=== PATIENT | female | born 1995 | race Caucasian/White ===

== ENCOUNTER 2021-03-02 16:17 | Inpatient (IN) ==
[2021-03-02] MEDS ORDERED: OXYTOCIN/0.9 % SODIUM CHLORIDE 30 UNITS/500 ML BAG IV ONE (17:59)
[2021-03-02] MEDS ORDERED: LIDOCAINE HCL 50 ML VIAL PERI PRN (17:59)
[2021-03-02] MEDS ORDERED: MISOPROSTOL 100 MCG TABLET VG PRN (17:59)
[2021-03-02] MEDS ORDERED: ONDANSETRON 4 MG TAB.RAPDIS PO PRN (17:59)
[2021-03-02] MEDS ORDERED: RINGER'S SOLUTION,LACTATED 1,000 ML IV ONE (17:59)
[2021-03-02] MEDS ORDERED: BUTORPHANOL TARTRATE 2 MG/ML VIAL IV PRN ×2 (17:59)
[2021-03-02 18:15] LABS: Hematocrit 35.3 % (37.0-47.0); Hemoglobin 11.4 gm/dL (12.5-16.0); Mean Cell Volume 83.1 fl (78-100); Mean Corpuscular Hemoglobin 26.8 pg (27-31); Mean Corpuscular Hgb Conc 32.3 g/dl (32-36); Mean Platelet Volume 11.9 fl (8-12.5); Neutrophil # 7.2 K/mm3 (1.3-6.0); Neutrophil % 73.5 % (42-75.0); Platelet Count 219 K/mm3 (150-450); Red Blood Count 4.25 M/mm3 (4.2-5.4); Red Cell Distribution Width 13.6 % (11.5-14.0); White Blood Count 9.7 K/mm3 (4.0-10.5)
[2021-03-02 18:30] LABS: Albumin * 2.7 gm/dl (3.4-5.0); Anion Gap 18.5 mmol/L (6.8-13.8); BUN/Creatinine Ratio 13.9 (9.0-21.6); Bilirubin, Total 0.1 mg/dL (0.0-1.1); Ca. Corrected For Albumin 9.6 mg/dL (8.4-10.2); Calcium * 8.9 mg/dL (7.9-10.9); Carbon Dioxide 21.1 mmol/L (24-32.6); Potassium 3.6 mmol/L (3.4-4.6); Total Protein 6.4 gm/dL (6.2-8.2)
[2021-03-02] MEDS: RINGER'S SOLUTION,LACTATED 1,000 ML IV PRN ×2 (19:00→22:57)
[2021-03-02] MEDS ORDERED: ONDANSETRON HCL/PF 2 MG/ML VIAL IV PRN (21:55)
[2021-03-02] MEDS ORDERED: NALOXONE HCL 1 MG/1 ML SYRG IV PRN (21:55)
[2021-03-02] MEDS ORDERED: BUPIVACAINE HCL/0.9 % NACL/PF 250 ML EP PRN (21:55)
[2021-03-02] MEDS ORDERED: BUPIVACAINE HCL/PF 30 ML VIAL EP SCH (22:00)
--- NOTE | 2021-03-02 22:42 | ANES ---
Anesthesia Pre Procedure Eval Vitals/Labs: Last Vital Signs Temp 37.3 C 03/02/21 18:15 Pulse 91 03/02/21 18:15 Resp 16 03/02/21 18:15 BP 126/86 03/02/21 18:15 Pulse Ox 97 03/02/21 18:15 HOME MEDICATIONS prenat.vits,sigrid,[id number] 1 tab PO DAILY 08/13/20 [Last Taken Unknown] Allergies/Adverse Reactions: Allergies Allergy/AdvReac Type Severity Reaction Status Date / Time No Known Allergies Allergy Verified 02/27/21 11:55 - Planned Procedure Planned Procedure: Labor Epidural Medical History (Last Reviewed 02/27/21 @ 11:56 by Mary Steinberg RN) Family planning (Acute) Routine gynecological examination (Acute) Migraine (Acute) Anxiety Onset Date: ~04/05/13 Depression Onset Date: ~04/05/13 Fatigue Onset Date: ~10/16/15 Ganglion cyst of wrist Onset Date: ~09/14/13 left Hematuria Hydronephrosis 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 Paul History of myringotomy History of wisdom tooth extraction Onset Date: ~2016 Family History (Last Reviewed 02/27/21 @ 11:56 by Mary Steinberg RN) Father COPD (chronic obstructive pulmonary disease) Mother Anxiety Depression Headache Arthritis Anemia Grandfather Lung cancer Grandmother Rectal cancer CVA (cerebral vascular accident) Arthritis Anemia - Anesthesia Assessment and Plan ASA Class: PS, II Anesthesia Type Plan: Epidural
--- NOTE | 2021-03-02 22:58 | ANES ---
Anesthesia Procedure Note Procedure Note: ANESTHESIA PROCEDURE NOTE Date of Procedure: 03/02/2021. Time of procedure: 2244. Performed by: Jeff Harrington CRNA Technical Implementation Lead: None. Preprocedure diagnosis: Active labor. Post procedure diagnosis: Same. Procedure: Insertion of labor epidural. Indications: The patient is a 25-year-old female in active labor requesting labor epidural for pain management. Findings: See below. Details of the procedure: The patient was placed in a sitting position. DuraPrep as well as Betadine swabs X3 was applied to the patient's back. Patient was then draped in a sterile fashion. Lidocaine 1% was infiltrated to the skin and subcutaneous tissues at the level of the L3-4 interspace. The epidural space was identified using a 18-gauge Tuohy needle with [id number] technique. Epidural catheter was inserted to a depth of 11 centimeters at skin. Negative test dose was elicited using 3 mL of 1.5% preservative-free lidocaine plus epinephrine 1 200,000. The epidural catheter was then taped and secured in place. A loading dose of 8 mL of 0.25% preservative-free bupivacaine was administered to the epidural catheter after negative aspiration for blood and CSF. EBL: Minimal. Fluids: N/A. Specimen: N/A. Post procedure condition: The patient tolerated the procedure well. No complications were noted. Thank you for this consultation. Jfef Harrington CRNA
--- NOTE | 2021-03-02 22:59 | ANES ---
Post Anesthesia Assessment - Vital Signs Vitals: Last Vital Signs Temp 37.3 C 03/02/21 18:15 Pulse 91 03/02/21 18:15 Resp 16 03/02/21 18:15 BP 126/86 03/02/21 18:15 Pulse Ox 97 03/02/21 18:15 Airway Patency: Normal - Mental Status Level Of Consciousness: Awake - N/V Assessment Nausea/Vomiting Presence: None Dehydration:: No
[2021-03-03] MEDS ORDERED: ACETAMINOPHEN 500 MG TABLET PO ONE (03:13)
[2021-03-03] MEDS: RINGER'S SOLUTION,LACTATED 1,000 ML IV PRN ×2 (04:06→12:05)
[2021-03-03] MEDS ORDERED: ACETAMINOPHEN 325 MG TABLET PO PRN (10:42)
--- NOTE | 2021-03-03 11:16 | HP ---
Chief Complaint - Chief Complaint Date of Service: 03/03/21 Time of Service: 11:15 Chief Complaint: Induction of labor History of Present Illness: 25 year old at 37w 1d who presented to labor and delivery for a medical IOL due to pre-eclampsia. She denies vb or lof. She reports regular ctx on pitocin. Fetus is active. 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 Paul History of myringotomy History of wisdom tooth extraction Onset Date: ~2016 Family History: Family History (Last Reviewed 03/03/21 @ 11:25 by Shona Hollins MD) Father COPD (chronic obstructive pulmonary disease) Mother Anxiety Depression Headache Arthritis Anemia Grandfather Lung cancer Grandmother Rectal cancer CVA (cerebral vascular accident) Arthritis Anemia Social History: (Last Reviewed 03/03/21 @ 11:25 by Shona Hollins MD) Social History: adopted: No foster care: No usp: No Marital status: Single lives independently: Yes household members: significant other number of children: 0 current occupational status: employed current occupation: [employer] current occupational exposures/hazards: No Highest level of school completed/degree received: some college, no degree Sexually Active: Yes Service: No Tobacco: Smoking Status: Never smoker Alcohol: alcohol intake: current alcohol intake frequency: a few times a month details: none since +UPT Substance Use: substance use type: does not use Dietary Habits: caffeine: Yes Type: coffee eating out: rarely or never Exercise: Physical activity functional status: independent ambulation Review Of Systems (GEN) - Review of Systems EENTM: Present: No Symptoms Reported Respiratory: Present: No Symptoms Reported Genitourinary: Present: Other - contractions Misc: All systems neg except as marked Immunizations: IMMUNIZATION HX Immunizations Up to Date Yes History of Influenza Vaccine No Hx Pneumococcal Vaccination No Allergies/Adverse Reactions: Allergies Allergy/AdvReac Type Severity Reaction Status Date / Time No Known Allergies Allergy Verified 02/27/21 11:55 Home Medications: HOME MEDICATIONS prenat.vits,sigrid,qkh-qvwa-pfkeh 1 tab PO DAILY 08/13/20 [Last Taken Unknown] Exam - Exam Vital Signs: Vital Signs - Last Taken Temp 37.3 C 03/02/21 18:15 Pulse 91 03/02/21 18:15 Resp 16 03/02/21 18:15 BP 126/86 03/02/21 18:15 Pulse Ox 97 03/02/21 18:15 Constitutional: Present: Alert, Oriented x3, Cooperative, No distress ENT Exam: Present: hearing grossly normal Eye Exam: bilateral eye: normal inspection Neck: Present: normal inspection Breasts: Present: Exam deferred Respiratory: Present: lungs clear, normal breath sounds, no respiratory distress Cardiovascular/Chest: Present: regular rate, rhythm Abdomen: Present: soft, nontender, nondistended /Rectal: Present: Other - /-2 AROM for clear fluid Extremity: Present: non-tender, no calf tenderness Skin Exam: Present: normal color, warm/dry, no cyanosis Neurologic: Present: alert, normal mood/affect, oriented x 3 Appearance: Present: appropriate appearance, appropriate insight, neat, no memory impairment Eye contact: Present: cooperative, good eye contact, normal speech Thoughts: Present: normal thought pattern Diagnostic Studies: Abnormal Lab Results 03/02/21 03/02/21 Range/Units 18:10 18:10 Hgb 11.4 L (12.5-16.0) gm/dL Hct 35.3 L (37.0-47.0) % MCH 26.8 L (27-31) pg Neutrophils # 7.2 H (1.3-6.0) K/mm3 Carbon Dioxide 21.1 L (24-32.6) mmol/L Anion Gap 18.5 H (6.8-13.8) mmol/L Random Glucose 113 H (70-110) mg/dL Albumin 2.7 L (3.4-5.0) gm/dl Laboratory Results WBC 9.7 K/mm3 (4.0-10.5) 03/02/21 18:10 RBC 4.25 M/mm3 (4.2-5.4) 03/02/21 18:10 Hgb 11.4 gm/dL (12.5-16.0) L 03/02/21 18:10 Hct 35.3 % (37.0-47.0) L 03/02/21 18:10 MCV 83.1 fl (78-100) 03/02/21 18:10 MCH 26.8 pg (27-31) L 03/02/21 18:10 MCHC 32.3 g/dl (32-36) 03/02/21 18:10 RDW 13.6 % (11.5-14.0) 03/02/21 18:10 Plt Count 219 K/mm3 (150-450) 03/02/21 18:10 MPV 11.9 fl (8-12.5) 03/02/21 18:10 Immature Gran % (Auto) 0.30 % (0.001-0.429) 03/02/21 18:10 Immature Gran # (Auto) 0.03 K/mm3 (0.000-0.0310) 03/02/21 18:10 Neutrophils % 73.5 % (42-75.0) 03/02/21 18:10 Lymphocytes % 20.0 % (20-51) 03/02/21 18:10 Monocytes % 5.7 % (0.0-9) 03/02/21 18:10 Eosinophils % 0.3 % (0.0-3.0) 03/02/21 18:10 Basophils % 0.2 % (0.0-1.0) 03/02/21 18:10 Nucleated RBC % 0.0 k/mm3 (0-1) 03/02/21 18:10 Neutrophils # 7.2 K/mm3 (1.3-6.0) H 03/02/21 18:10 Lymphocytes # 1.94 k/mm3 (1.5-3.5) 03/02/21 18:10 Monocytes # 0.6 k/mm3 (0.0-1.0) 03/02/21 18:10 Eosinophils # 0.0 k/mm3 (0.0-0.7) 03/02/21 18:10 Absolute Basophils 0.0 k/mm3 (0.0-0.1) 03/02/21 18:10 Sodium 140 mmol/L (132-142) 03/02/21 18:10 Plasma Sodium 140 mmol/L (130-142) 03/02/21 18:10 Potassium 3.6 mmol/L (3.4-4.6) 03/02/21 18:10 Chloride 104 mmol/L (97-106) 03/02/21 18:10 Carbon Dioxide 21.1 mmol/L (24-32.6) L 03/02/21 18:10 Anion Gap 18.5 mmol/L (6.8-13.8) H 03/02/21 18:10 BUN 10 mg/dL (3-23) D 03/02/21 18:10 Creatinine 0.72 mg/dL (0.4-1.4) 03/02/21 18:10 Est GFR (Non-Af Amer) 106 mL/min (60-130) D 03/02/21 18:10 BUN/Creatinine Ratio 13.9 (9.0-21.6) 03/02/21 18:10 Random Glucose 113 mg/dL (70-110) H 03/02/21 18:10 Calcium 8.9 mg/dL (7.9-10.9) 03/02/21 18:10 Calcium Adj for Albumin 9.6 mg/dL (8.4-10.2) 03/02/21 18:10 Total Bilirubin 0.1 mg/dL (0.0-1.1) 03/02/21 18:10 AST 16 U/L (0-48) 03/02/21 18:10 ALT 28 U/L (19-67) 03/02/21 18:10 Alkaline Phosphatase 148 U/L (50-170) 03/02/21 18:10 Total Protein 6.4 gm/dL (6.2-8.2) 03/02/21 18:10 Albumin 2.7 gm/dl (3.4-5.0) L 03/02/21 18:10 Blood Type O Positive 03/02/21 18:10 Antibody Screen Negative 03/02/21 18:10 Assessment/Plan - Narrative Narrative: 25 year old at 37w 1d 1. Medical IOL for pre-eclampsia without severe features: on pitocin, AROM performed for augmentation 2. GBS negative: prophylaxis not indicated - Assessment/Plan (1) 37 weeks gestation of Problem: Acute (2) Normal Pap smear Problem: Acute (3) Rh(D) positive Problem: Acute (4) Pre-eclampsia Problem: Acute Qualifiers: Trimester: third trimester Qualified Code(s): O14.93 - Unspecified pre- eclampsia, third trimester
--- NOTE | 2021-03-03 15:14 | OR ---
Operative Report - Dictated Report Narrative: Date of delivery: 03/03/2021 Time of delivery: 1452 Gender: male weight: 3197 grams APGARS: 07/18 Procedure: Description of the procedure: The patient is a 25 year old at 37w 1d who presented to labor and delivery for a medical IOL due to pre-eclampsia. She progressed to complete dilation. She delivered a viable male in direct OA presentation. The shoulders delivered with maternal expulsive efforts alone followed by the rest of the infant. Cord clamping was delayed for 60 seconds due to vigorous . The cord was clamped and cut. Cord blood was collected. The placenta delivered by expression, intact, and without difficulty. A bilateral labial laceration was noted which did not require repair. Hemostasis was adequate. EBL: 100 mL Complications: none Specimens: cord blood, placenta History for MU Definition: * The number of deliveries resulting in a live the patient experienced prior to current hospitalization * The previous delivery of live twins or any live multiple gestation is considered one live event. *If primagravida or nulliparous is documented select zero for the number of previous live births. Live Events: 0
[2021-03-03] MEDS ORDERED: HYDROCORTISONE 30 APPL TUBE TP PRN (16:05)
[2021-03-03] MEDS ORDERED: GLYCERIN/WITCH HAZEL LEAF 40 APPL BOX TP PRN (16:05)
[2021-03-03] MEDS ORDERED: BENZOCAINE/MENTHOL 81 SPRAY CAN TP PRN (16:05)
[2021-03-03] MEDS ORDERED: HYDROcodone/ACETAMINOPHEN 1 EACH TABLET PO PRN ×2 (16:05)
[2021-03-03] MEDS ORDERED: diphenhydrAMINE HCL 25 MG CAPSULE PO PRN (16:05)
[2021-03-03] MEDS ORDERED: BISACODYL 10 MG SUPP.RECT RC PRN (16:05)
[2021-03-03] MEDS ORDERED: OXYTOCIN/0.9 % SODIUM CHLORIDE 30 UNITS/500 ML BAG IV ONE (16:05)
[2021-03-03] MEDS ORDERED: SENNOSIDES 8.6 MG TABLET PO PRN (16:05)
[2021-03-03] MEDS: IBUPROFEN 800 MG TABLET PO PRN (23:33)
[2021-03-03] MEDS: DOCUSATE SODIUM 100 MG CAPSULE PO SCH (23:41)
--- NOTE | 2021-03-04 08:19 | PN ---
Subjective - Date and Time Seen Date: 03/04/21 Time: 08:17 Subjective Narrative: Patient without complaints Objective Objective Narrative: See vital signs - Review of Systems Generalized/Overall Review: Reports: No Symptoms Reported Misc: All systems neg except as marked - Vitals Vitals: Last Vital Signs Temp 36.7 C 03/04/21 07:13 Pulse 71 03/04/21 07:13 Resp 18 03/04/21 07:13 BP 126/81 03/04/21 07:13 Pulse Ox 98 03/04/21 07:13 - Exam Constitutional: Present: Alert, Oriented x3, Cooperative, No distress ENT Exam: Present: hearing grossly normal Neck: Present: normal inspection Abdomen: Present: soft, nontender, nondistended - fundus is firm Extremity: Present: non-tender, no calf tenderness Skin Exam: Present: normal color, warm/dry, no cyanosis Neurologic: Present: alert, normal mood/affect, oriented x 3 Appearance: Present: appropriate appearance, appropriate insight, neat, no memory impairment Eye contact: Present: cooperative, good eye contact, normal speech Thoughts: Present: normal thought pattern Cauti Physician Documentation - Urinary Catheter Management Urethral ([place]) Urethral Indwelling: No Date of Insertion: 03/02/21 Time of Insertion: 23:05 Date of Removal: 03/03/21 Time of Removal: 14:40 Assessment/Plan Plan Narrative: PPD 1 s/p Doing well Discharge tomorrow - Problems/Diagnosis (1) 37 weeks gestation of Problem: Acute (2) Normal Pap smear Problem: Acute (3) Rh(D) positive Problem: Acute (4) Pre-eclampsia Problem: Acute Qualifiers: Trimester: third trimester Qualified Code(s): O14.93 - Unspecified pre-eclampsia, third trimester
[2021-03-04] MEDS ORDERED: PRENATAL VITS96/IRON FUM/FOLIC 1 TAB TABLET PO SCH (09:00)
[2021-03-04] MEDS: IBUPROFEN 800 MG TABLET PO PRN (13:21)
[2021-03-04] MEDS: DOCUSATE SODIUM 100 MG CAPSULE PO SCH (14:37)
[2021-03-05] MEDS: DOCUSATE SODIUM 100 MG CAPSULE PO SCH (01:09)
[2021-03-05 06:53] VITALS: BP 125/77
--- NOTE | 2021-03-05 08:11 | PN ---
Subjective - Date and Time Seen Date: 03/05/21 Time: 08:09 Subjective Narrative: Patient without complaints Objective Objective Narrative: See vital signs - Review of Systems Generalized/Overall Review: Reports: No Symptoms Reported Genitourinary Symptoms: Reports: Other - normal vaginal bleeding Misc: All systems neg except as marked - Vitals Vitals: Last Vital Signs Temp 36.9 C 03/05/21 06:50 Pulse 76 03/05/21 06:50 Resp 18 03/05/21 06:50 BP 125/77 03/05/21 06:50 Pulse Ox 98 03/05/21 06:50 - Exam Constitutional: Present: Alert, Oriented x3, Cooperative, No distress ENT Exam: Present: hearing grossly normal Neck: Present: normal inspection Abdomen: Present: soft, nontender, nondistended - fundus is firm Extremity: Present: non-tender, no calf tenderness Skin Exam: Present: normal color, warm/dry, no cyanosis Neurologic: Present: alert, normal mood/affect, oriented x 3 Appearance: Present: appropriate appearance, appropriate insight, neat, no memory impairment Eye contact: Present: cooperative, good eye contact, normal speech Thoughts: Present: normal thought pattern Cauti Physician Documentation - Urinary Catheter Management Urethral ([place]) Urethral Indwelling: No Date of Insertion: 03/02/21 Time of Insertion: 23:05 Date of Removal: 03/03/21 Time of Removal: 14:40 Assessment/Plan Plan Narrative: PPD 2 s/p Doing well Discharge today - Problems/Diagnosis (1) 37 weeks gestation of Problem: Acute (2) Normal Pap smear Problem: Acute (3) Rh(D) positive Problem: Acute (4) Pre-eclampsia Problem: Acute Qualifiers: Trimester: third trimester Qualified Code(s): O14.93 - Unspecified pre- eclampsia, third trimester
--- NOTE | 2021-03-05 08:14 | DS ---
OB Discharge Summary (1) 37 weeks gestation of Status: Acute (2) Normal Pap smear Status: Acute (3) Rh(D) positive Status: Acute (4) Pre-eclampsia Status: Acute Qualifiers: Trimester: third trimester Qualified Code(s): O14.93 - Unspecified pre- eclampsia, third trimester Delivery Date: 03/03/21 Delivery Time: 14:52 :: 1 Para:: 1 Gestational weeks:: 37 Gestational days:: 1 Intrapartum Procedures: Spontaneous Vaginal Delivery, Anesthesia - Epidural Procedures: None /OP Complications: No Complications Discharge Diagnosis: Term -Delivered, Preeclampsia mild/severe - Discharge Information Date of Discharge: 03/05/21 Hospital Course: The patient presented for a medical IOL due to pre-eclampsia without severe features. Delivery and course were uncomplicated. Discharge Location: Home Disposition: Home self-care Condition: Good Activity on Discharge:: Activity as tolerated, Pelvic Rest Discharge Diet: General/regular food Complete Home Medications List: Complete Home Medication List: prenat.vits,sigrid,[id number] 1 tab PO DAILY 08/13/20 - Plan Discharge to:: Home Comment:: Routine Discharge Instructions Follow up in office in:: 6 weeks - [place] Information Weight (Grams): 3,197 Sex: Male Score 1 min: 9 Score 5 min: 9 Infant Complications: None Other Complications: Blood type: o+/neg meredith. Mom: Pre eclampsia
== END 2021-03-05 12:45 | disposition home or self-care (01) | DRG 807 ==
LOC: OB 17:54
PROVIDERS: ADMIT Obstetrics & Gynecology; ATTEND Obstetrics & Gynecology